=== PATIENT | female | born 1945 | race Caucasian/White ===

== ENCOUNTER 2024-09-10 07:19 | Emergency (ER) | payer MEDICARE, BC ==
[~2024-09-10] VITALS: Ht 157.5 cm; Wt 78.0 kg
[2024-09-10] VITALS (12 sets, daily range): BP systolic 104–216; BP diastolic 67–119
[~2024-09-10 07:19] MED LIST: ASPIRIN 8181 MG PO; D 10001000 UNIT PO; LEVOTHYROXIN100 MC1 PO; ZOSTAVAX IM; [UNRECOGNIZED DRUG - OTHER] PO
[2024-09-10] MEDS ORDERED: KETOROLAC TROMETHAMINE 15 MG/ML SDV IV ONE (07:45)
[2024-09-10] MEDS ORDERED: ISOVUE-300 (Iopamidol) 100 ML SDV IV ONE (07:45)
[2024-09-10] MEDS ORDERED: ONDANSETRON HCl 4 MG/2 ML SDV IV ONE (07:45)
[2024-09-10 08:10] LABS: URINE BILIRUBIN - DIPSTICK Negative (NEGATIVE); URINE BLOOD DIPSTICK Large (NEGATIVE); URINE GLUCOSE - DIPSTICK 100 mg/dL (NEGATIVE); URINE KETONE Negative (NEGATIVE); URINE LEUK ESTERASE Negative (NEGATIVE); URINE NITRITE - DIPSTICK Negative (Negative); URINE PH 7.5 (4.5-8.0); URINE PROTEIN - DIPSTICK 100 mg/dL (NEG-TRACE); URINE SPECIFIC GRAVITY 1.025; URINE UROBILINOGEN - DIPSTICK 0.2 E.U./dL (0.2)
[2024-09-10 08:14] LABS: URINE COLOR Yellow
[2024-09-10 08:17] LABS: URINE RBC 25-50 RBC/hpf (0-5); URINE WBC 0-2 WBC/hpf (0-5)
[2024-09-10 08:17] LABS: BASO% 0.2 % (0-3); HEMATOCRIT 46.4 % (37.0-47.0); HEMOGLOBIN 15.5 g/dl (12.0-16.0); IMMATURE GRANULOCYTES 0.1 % (0.0-5.0); LYMPH% 4.1 % (15-41); MEAN CELL VOLUME 90.4 fL CALC (80.0-100.0); MEAN CORPUSCULAR HGB 30.2 pG CALC (26.0-32.0); MEAN CORPUSCULAR HGB CONC 33.4 g/dL CAL (32.0-36.0); NEUT# 10.68 thou/uL (2.00-7.15); NEUT% 92.6 % (42-76); RED BLOOD COUNT 5.13 mill/uL (4.20-5.60); RED CELL DISTRI WIDTH 11.9 % (11.5-15.5)
[2024-09-10 08:18] LABS: URINE BACTERIA RARE hpf; URINE SQUAMOUS EPITHELIAL CELL FEW EPI/hpf (0-FEW)
[2024-09-10 08:22] LABS: ALBUMIN 4.7 g/dL (3.2-5.0); BILIRUBIN, TOTAL 0.9 mg/dL (0.02-1.3); CREATININE 1.1 mg/dL (0.5-1.0); POTASSIUM 4.3 mmol/l (3.5-5.1); TOTAL PROTEIN 8.5 g/dL (6.3-8.2)
[2024-09-10] MEDS ORDERED: TAMSULOSIN0.4 MG PO (10:14)
[2024-09-10] MEDS ORDERED: TRAMADOL HYDROC50 M1 PO (10:14)
[2024-09-10] MEDS ORDERED: CEPHALEXIN500 M1 PO (10:14)
[2024-09-10] MEDS ORDERED: TORADOL PO (10:14)
[2024-09-10] MEDS ORDERED: ZOFRAN4 MG/TAB PO (10:14)
== END 2024-09-10 10:36 | disposition left against medical advice (07) ==
LOC: ED 07:19
PROVIDERS: Family Medicine
DX: N13.2 Hydronephrosis with renal and ureteral calculous obstruction (principal); N17.9 Acute kidney failure, unspecified; E03.9 Hypothyroidism, unspecified; Z53.29 Procedure and treatment not carried out because of patient's decision for other reasons
CPT/HCPCS: J1885; J2405